=== PATIENT | male | born 1975 | race Caucasian/White ===

== ENCOUNTER 2016-07-20 22:08 | Emergency (ER) | payer BC ==
--- NOTE | 2016-07-20 23:26 | ED ---
Rosetta Styles Matthew, scribed for Norman Jernigan MD on 07/20/16 at 2326 . Lower Extremity - HPI Summary HPI Summary: A 41 y/o male presents to the ED from [facility] c/o of a "lump" on the right cano since 07/16/16. The "lump" was initially the size of a nickel and he lanced it on 07/18/16. Associated symptoms include erythema, swelling, SOB, and productive cough with green phlegm. The patient denies fever. He has been consistently taking Tylenol. - History of Current Complaint Chief Complaint: EDExtremityLower Stated Complaint: RIGHT LEG SWELLING,SHORT OF BREATH COMMING FROM Time Seen by Provider: 07/20/16 23:11 Hx Obtained From: Patient Mechanism Of Injury: Unknown Onset/Duration: Still Present Severity Initially: Mild Severity Currently: Mild Pain Intensity: 3 Pain Scale Used: 0-10 Numeric Timing: Constant Location: Is Discrete @ - right vizcaino Associated Signs And Symptoms: Positive: Swelling, Redness, Other - SOB, productive cough w/ green phlegm. Negative: Fever Aggravating Factor(s): Nothing Alleviating Factor(s): Nothing Able to Bear Weight: Yes - Allergies/Home Medications Allergies/Adverse Reactions: Allergies Allergy/AdvReac Type Severity Reaction Status Date / Time Penicillins [PCN] Allergy Severe Unknown Verified 01/14/16 09:31 Reaction Details Levofloxacin [From Levaquin] Allergy Rash Verified 01/14/16 09:31 PMH/Surg Hx/FS Hx/Imm Hx Endocrine/Hematology History: Denies: Hx Diabetes, Hx Thyroid Disease Cardiovascular History: Denies: Hx Congestive Heart Failure, Hx Hypertension, Hx Pacemaker/ICD Respiratory History: Reports: Hx Asthma Denies: Hx Chronic Obstructive Pulmonary Disease (COPD) GI History: Denies: Hx Ulcer History: Denies: Hx Renal Disease Sensory History: Reports: Hx Contacts or Glasses, Hx Hearing Problem Denies: Hx Hearing Aid Opthamlomology History: Reports: Hx Contacts or Glasses Psychiatric History: Reports: Hx Anxiety, Hx Depression, Hx Panic Disorder - VERY AXIOUS, Hx Substance Abuse Denies: Hx Suicide Attempt Infectious Disease History: No Infectious Disease History: Reports: Hx Hepatitis - Hep A & D or E Denies: Hx Human Immunodeficiency Virus (HIV), Traveled Outside the [place] in Last 30 Days - Family History Known Family History: Positive: Other - DJD - Social History Alcohol Use: None Hx Substance Use: Yes - Hx of IV drugs abuse Substance Use Type: Reports: None Smoking Status (MU): Unknown if Ever Smoked Type: Smokeless Tobacco Review of Systems Constitutional: Negative Negative: Fever Eyes: Negative ENT: Negative Cardiovascular: Negative Positive: Shortness Of Breath, Cough - w/ green phlegm Gastrointestinal: Negative Genitourinary: Negative Musculoskeletal: Negative Skin: Other - erythema of the cano, swelling of the vizcaino Neurological: Negative Psychological: Normal All Other Systems Reviewed And Are Negative: Yes Physical Exam Triage Information Reviewed: Yes Vital Signs On Initial Exam: Initial Vitals Temp Pulse Resp BP Pulse Ox 97.9 F 60 18 163/79 100 07/20/16 22:10 07/20/16 22:10 07/20/16 22:10 07/20/16 22:10 07/20/16 22:10 Vital Signs Reviewed: Yes Appearance: Positive: Well-Appearing, No Pain Distress Skin: Positive: Warm, Other - rle 2x2 cm area of erythema, warmth tender, no fluctuance Eyes: Positive: BROWN ENT: Positive: Hearing grossly normal Neck: Positive: Supple Respiratory/Lung Sounds: Positive: Clear to Auscultation, Breath Sounds Present Cardiovascular: Positive: RRR Abdomen Description: Positive: Nontender, Soft Bowel Sounds: Positive: Present Diagnostics - Vital Signs Vital Signs Temp Pulse Resp BP Pulse Ox 07/20/16 22:46 98.5 F 61 16 128/65 99 07/20/16 22:10 97.9 F 60 18 163/79 100 - Laboratory Lab Statement: Any lab studies that have been ordered have been reviewed, and results considered in the medical decision making process. - Radiology CXR Xray Interpretation: No Acute Changes Radiology Interpretation Completed By: Radiologist Lower Extremity Course/Dx - Course Assessment/Plan: A 41 y/o male presents to the ED from [facility] c/o of a "lump" on the right cano since 07/16/16. The "lump" was initially the size of a nickel and he lanced it on 07/18/16. Associated symptoms include erythema, swelling, SOB, and productive cough with green phlegm. The patient denies fever. He has been consistently taking Tylenol. CXR was negative. In the ED course, the patient was given Keflex. He will be discharged on Keflex and follow-up with his PCP. - Diagnoses Provider Diagnoses: Cellulitis Discharge - Discharge Plan Condition: Stable Disposition: HOME Prescriptions: Cephalexin CAP* [Keflex CAP*] 250 mg PO QID #30 cap Patient Education Materials: Cephalexin (By mouth), Cellulitis (ED) Referrals: Jose Boone MD [Primary Care Provider] - 3 Days Additional Instructions: Please follow-up with your primary care physician. The documentation as recorded by the Rosetta carney Matthew accurately reflects the service I personally performed and the decisions made by me, Norman Jernigan MD.
[2016-07-20] MEDS ORDERED: Cephalexin CAP* 500 MG PO ONE (23:43)
[2016-07-21 00:10] VITALS: BP 130/76
--- NOTE | 2016-07-21 07:35 | RAD ---
INDICATION: Cough. COMPARISON: Correlation is made with prior chest x-ray studies from October 31, 2015 and November 21, 2015. TECHNIQUE: Dual-energy PA and lateral views of the chest were obtained. FINDINGS: The heart is within normal limits in size. Mediastinal and hilar contours appear within normal limits. The lungs are clear. No pleural effusion is present. IMPRESSION: NO EVIDENCE FOR ACTIVE CARDIOPULMONARY DISEASE.
== END 2016-07-21 00:10 | disposition home or self-care (01) ==
LOC: ED 22:08
DX: L03.115 Cellulitis of right lower limb (principal); F41.9 Anxiety disorder, unspecified; Z88.0 Allergy status to penicillin
CPT/HCPCS: 71020; 99282

== ENCOUNTER 2017-05-13 20:35 | Emergency (ER) | payer BC ==
[2017-05-13 20:59] VITALS: BP 129/83
[2017-05-13] MEDS ORDERED: Sulfamethox/Trimethoprim DS 800/160* TAB PO ONE (21:19)
[2017-05-13] MEDS ORDERED: Cephalexin CAP* 500 MG PO ONE (21:19)
--- NOTE | 2017-05-13 21:30 | UC ---
Skin Complaint HPI - HPI Summary HPI Summary: 42 year male with history of PSA (sober for 11 years) here for right arm, abdominal, groin area and leg redness and swelling. Reports symptoms started about 10 days ago with lesion over groin. Over the course of the past few days, reports the swelling and lesions disseminated to arm, abdomen, leg and back. Denies fever, chills. No n/v/d/. Reports mild pain. - History of Current Complaint Chief Complaint: UCSkin Time Seen by Provider: 05/13/17 21:01 Stated Complaint: RASH Hx Obtained From: Patient Onset/Duration: Gradual Onset Skin Exposure Onset/Duration: Days Ago Onset Severity: Mild Current Severity: Mild Pain Intensity: 5 Location: Diffuse Aggravating Factor(s): Nothing - Allergy/Home Medications Allergies/Adverse Reactions: Allergies Allergy/AdvReac Type Severity Reaction Status Date / Time levofloxacin [From Levaquin] Allergy Severe Rash Verified 05/13/17 20:59 Penicillins Allergy Unknown Unknown Verified 05/13/17 20:59 Reaction Details Home Medications: Home Medications Methylphenidate ER TAB* [Concerta ER TAB*] 54 mg PO BID MDD 1 tab 05/13/17 [ History Confirmed 05/13/17] Review of Systems All Other Systems Reviewed And Are Negative: Yes PMH/Surg Hx/FS Hx/Imm Hx Previously Healthy: No - Surgical History Surgical History: None - Family History Known Family History: Positive: Other - DJD - Social History Alcohol Use: None Substance Use Type: None Smoking Status (MU): Never Smoked Tobacco Type: Smokeless Tobacco - Immunization History Most Recent Influenza Vaccination: 2 weeks ago Most Recent Tetanus Shot: unknown Most Recent Pneumonia Vaccination: never Physical Exam Triage Information Reviewed: Yes Vital Signs: Initial Vital Signs Temp 36.7 C 05/13/17 20:52 Pulse 98 05/13/17 20:52 Resp 18 05/13/17 20:52 BP 129/83 05/13/17 20:52 Pulse Ox 100 05/13/17 20:52 Eye Exam: Normal Respiratory Exam: Normal Cardiovascular: Positive: RRR, Pulses Normal. Negative: No Murmur Abdomen Description: Positive: Nontender Musculoskeletal Exam: Normal Skin: Positive: rashes - 15-20 disseminated erythematous lesions with few pustules often. No fluctuance warm to touch. No central clearing Course/Dx - Differential Diagnoses - Skin Complaint Differential Diagnoses: Abscess, Lymphadenitis, Other - folliculitis - Diagnoses Provider Diagnoses: Folliculitis. ?Disseminated MRSA Discharge - Discharge Plan Condition: Good Disposition: HOME Prescriptions: Cephalexin CAP* [Keflex CAP*] 500 mg PO QID #40 cap Sulfamethox/Trimethoprim DS* [Bactrim DS 800/160 TAB*] 1 tab PO BID #20 tab Patient Education Materials: MRSA (Methicillin-Resistant Staphylococcus Aureus ) (ED), Folliculitis (ED) Forms: *Work Release Referrals: Jose Boone MD [Primary Care Provider] - Additional Instructions: Follow up with your primary care doctor
== END 2017-05-13 21:45 | disposition home or self-care (01) ==
LOC: UCEAST 20:35
DX: L73.9 Follicular disorder, unspecified (principal); Z88.1 Allergy status to other antibiotic agents; Z88.0 Allergy status to penicillin
CPT/HCPCS: 99212; A9270-GY; G0463

== ENCOUNTER 2017-06-16 20:54 | Inpatient (IN) | payer BC ==
[2017-06-16] MEDS ORDERED: Ketorolac INJ* 30 MG/ML 1 ML VIAL IV PUSH ONE (21:18)
[2017-06-16] MEDS ORDERED: NS 0.9% 1000 ML* 1,000 ML IV ONE ×2 (21:19→23:09)
[2017-06-16] MEDS ORDERED: Vancomycin(*) 1,000 MG in NS 0.9% 250 ML* 250 ML IVPB ONE (21:19)
--- NOTE | 2017-06-16 21:54 | RAD ---
HISTORY: Fever COMPARISONS: July 20, 2016 VIEWS: 1: frontal portable view of the chest at 9:30 PM FINDINGS: LINES AND TUBES: None. CARDIOMEDIASTINAL SILHOUETTE: The cardiomediastinal silhouette is normal for portable technique. PLEURA: The costophrenic angles are sharp. No pleural abnormalities are noted. LUNG PARENCHYMA: The lungs are clear. ABDOMEN: The upper abdomen is clear. There is no subphrenic gas. BONES AND SOFT TISSUES: No bone or soft tissue abnormalities are noted. IMPRESSION: NO ACTIVE CARDIOPULMONARY DISEASE.
[2017-06-16 21:59] LABS: ABS Basophils 0.1 10^3/ul (0-0.2); ABS Eosinophils 0.2 10^3/ul (0-0.6); ABS Lymphocytes 2.2 10^3/ul (1.0-4.8); ABS Monocytes 0.8 10^3/ul (0-0.8); ABS Neutrophils 7.6 10^3/ul (1.5-7.7); ABS Nucleated RBC 0 10^3/ul; Eosinophil % 1.5 % (0-6); Hematocrit 40 % (42-52); Hemoglobin 13.8 g/dl (14.0-18.0); Lymphocyte % 20.4 % (25-47); Mean Corpuscular HGB Conc 34 g/dl (31-36); Mean Corpuscular Hemoglobin 29 pg (27-31); Mean Corpuscular Volume 83 fL (80-94); Mean Platelet Volume 8.1 um3 (7.4-10.4); Nucleated Red Blood Cells % 0; Platelet Count 254 10^3/ul (150-450); Red Blood Count 4.84 10^6/ul (4.0-5.4); Red Cell Distribution Width 13 % (10.5-15); White Blood Count 10.9 10^3/ul (3.5-10.8)
[2017-06-16 22:08] LABS: INR 1.06 (0.77-1.02)
[2017-06-16 22:17] LABS: Urine Appearance Cloudy; Urine Blood Negative (Negative); Urine Color Yellow; Urine Ketones Negative (Negative); Urine Protein Negative (Negative); Urine Specific Gravity 1.026 (1.010-1.030); Urine Urobilinogen Negative (Negative)
[2017-06-16 22:20] LABS: EGFR Non-African American 115.3 (>60)
--- NOTE | 2017-06-16 22:58 | ED ---
Karyn Styles Nilda, scribed for Lisa Kelly MD on 06/16/17 at 2106 . Skin Complaint - HPI Summary HPI Summary: This patient is a 42 year old M presenting to [facility] accompanied by with a chief complaint of constant painful, erythematous lesions to right thigh and right buttock with drainage for the past week. Pt states he's recently been treated for MRSA that was located on R-leg and L-arm last month (now resolved). Pt notes he went to [facility] and was treated with a 10-day course of abx which he completed 3 weeks ago. Symptoms aggravated by palpation, and alleviated by 2 Tylenols for pain last taken at 1700 today. Patient reports chills, diaphoresis , fever, and myalgia, since onset of lesions. Pt notes 4-year-old daughter was positive for MRSA via culture. Pt notes his own lesions were not cultured. Medications include Concerta and Suboxone. Pt states he's been sober from drugs 11 years. - History of Current Complaint Chief Complaint: EDRashSkinAbscess Time Seen by Provider: 06/16/17 21:02 Stated Complaint: RASH Hx Obtained From: Patient Onset/Duration: Started Weeks Ago, Still Present Skin Exposure Onset/Duration: Weeks Ago Timing: Constant Pain Intensity: 0 Pain Scale Used: 0-10 Numeric Skin Location: Other: - right thigh and right buttock Character: Pain, Redness Aggravating Symptom(s): Touch Alleviating Symptom(s): OTC Meds - tylenol Associated Signs & Symptoms: Diaphoresis, Fever, Chills, Rash, Tenderness Related History: Other: - MRSA, recent contact with family with MRSA - Additional Pertinent History Primary Care Physician: [id number] - Allergy/Home Medications Allergies/Adverse Reactions: Allergies Allergy/AdvReac Type Severity Reaction Status Date / Time levofloxacin [From Levaquin] Allergy Severe Rash Verified 06/16/17 21:21 Penicillins Allergy Unknown Unknown Verified 06/16/17 21:21 Reaction Details PMH/Surg Hx/FS Hx/Imm Hx Endocrine/Hematology History: Denies: Hx Diabetes, Hx Thyroid Disease Cardiovascular History: Denies: Hx Congestive Heart Failure, Hx Hypertension, Hx Pacemaker/ICD Respiratory History: Reports: Hx Asthma Denies: Hx Chronic Obstructive Pulmonary Disease (COPD) GI History: Denies: Hx Ulcer History: Denies: Hx Renal Disease Sensory History: Reports: Hx Contacts or Glasses, Hx Hearing Problem Denies: Hx Hearing Aid Opthamlomology History: Reports: Hx Contacts or Glasses Psychiatric History: Reports: Hx Anxiety, Hx Depression, Hx Panic Disorder - VERY AXIOUS, Hx Substance Abuse Denies: Hx Suicide Attempt Infectious Disease History: Yes Infectious Disease History: Reports: Hx Hepatitis - Hep A & D or E Denies: Hx Human Immunodeficiency Virus (HIV), Traveled Outside the [place] in Last 30 Days - Family History Known Family History: Positive: Other - DJD, MRSA (child) - Social History Lives: With Family Alcohol Use: None Hx Substance Use: Yes - Hx of IV drugs abuse Substance Use Type: Reports: None Smoking Status (MU): Never Smoked Tobacco Type: Smokeless Tobacco Review of Systems Positive: Fever, Chills, Skin Diaphoresis Positive: Myalgia Positive: Other - painful, erythematous lesions to right thigh and right buttock with drainage All Other Systems Reviewed And Are Negative: Yes Physical Exam - Summary Physical Exam Summary: VITAL SIGNS: Reviewed. GENERAL: Patient is a well-developed and nourished male who is lying comfortable in the stretcher. Patient is not in any acute respiratory distress. HEAD AND FACE: No signs of trauma. No ecchymosis, hematomas or skull depressions. No sinus tenderness. EYES: PERRLA, EOMI x 2, No injected conjunctiva, no nystagmus. EARS: Hearing grossly intact. Ear canals and tympanic membranes are within normal limits. MOUTH: Oropharynx within normal limits. NECK: Supple, trachea is midline, no adenopathy, no JVD, no carotid bruit, no c- spine tenderness, neck with full ROM. CHEST: Symmetric, no tenderness at palpation LUNGS: Clear to auscultation bilaterally. No wheezing or crackles. CVS: Regular rate and rhythm, S1 and S2 present, no murmurs or gallops appreciated. ABDOMEN: Soft, non-tender. No signs of distention. No rebound no guarding, and no masses palpated. Bowel sounds are normal. EXTREMITIES: FROM in all major joints, no edema, no cyanosis or clubbing. NEURO: Alert and oriented x 3. No acute neurological deficits. Speech is normal and follows commands. SKIN: Dry and warm, 2 lesions over the right thigh (one on lateral aspect and one on medial aspect) that are 1-2in in diameter, and are red, swollen, tender with no discharge. Triage Information Reviewed: Yes Vital Signs On Initial Exam: Initial Vitals Temp Pulse Resp BP Pulse Ox 97.9 F 88 16 129/75 97 06/16/17 20:55 06/16/17 20:55 06/16/17 20:55 06/16/17 20:55 06/16/17 20:55 Vital Signs Reviewed: Yes Diagnostics - Vital Signs Vital Signs Temp Pulse Resp BP Pulse Ox 06/16/17 20:55 97.9 F 88 16 129/75 97 - Laboratory Result Diagrams: 06/16/17 21:50 Lab Statement: Any lab studies that have been ordered have been reviewed, and results considered in the medical decision making process. - Radiology CXR Radiology Interpretation Completed By: Radiologist - CXR, per radiologist, reveals no active cardiopulmonary disease. Dr. Kelly has reviewed this radiology report. Course/Dx - Course Course Of Treatment: The lesion on the lateral thigh has prominent head which needed aspiration. There was no aspirate in syringe but there was still a scant amount of bloody pus-filled discharge that oozed from wound and was sent for culture. Assessment/Plan: This pt is a 42 y/o with Hx MRSA who came with fever and painful skin lesions. Exam consistent with cellulitis. Pt will be admitted for IV vancomycin. - Diagnoses Provider Diagnoses: Cellulitis - Physician Notifications Discussed Care Of Patient With: Sparkel Fuentes - Hospitalist Time Discussed With Above Provider: 22:09 Instructed by Provider To: Admit As Inpatient Discharge - Sign-Out/Discharge Documenting (check all that apply): Discharge - admit - Discharge Plan Condition: Stable Disposition: ADMITTED TO [facility] Referrals: Jose Boone MD [Primary Care Provider] - The documentation as recorded by the Karyn carney Nilda accurately reflects the service I personally performed and the decisions made by me, Lisa Kelly MD.
[2017-06-16] MEDS ORDERED: Ondansetron INJ* 2 MG/ML VIAL IV PRN (23:07)
[2017-06-16] MEDS ORDERED: Al Hydrox/Mg Hydrox/Simet LIQ* 30 ML UDC PO PRN (23:07)
[2017-06-16] MEDS ORDERED: Vancomycin per Pharmacy* NOTE FOLLOW UP PRN (23:37)
[2017-06-16] MEDS ORDERED: Vancomycin(*) 0 MG in NS 0.9% 250 ML* 250 ML IVPB SCH (23:45)
--- NOTE | 2017-06-17 00:42 | HP ---
CC: Jose Boone MD * HISTORY AND PHYSICAL: DATE OF ADMISSION: 06/16/17 TIME OF EVALUATION: 2300. PRIMARY CARE PHYSICIAN: Jose Boone MD CHIEF COMPLAINT: Concern for an abscess. HISTORY OF PRESENT ILLNESS: This is a 42-year-old male with a past medical history of cellulitis and boils, concerned for MRSA, who presented to the emergency room with recurrent infection. The patient states about a month ago, he had boils on his right arm, stomach and his left leg. His daughter also was diagnosed with MRSA. They did not culture his, but he was started on Bactrim and Keflex at [facility] for 10 days. He states they all seemed to resolve and there is some redness at some of the sites; however, for the past week he has had new onset of abscess, boils on his right lower buttock and right inner thigh for the past week. He has had fevers and chills, decrease in p.o. He has been nauseated. He did use his daughter's antibiotic ointment with no relief. No chest pain, no shortness of breath. No urinary symptoms. No other rash. In the emergency room, the patient had labs. They were able to express some purulent fluid from one of the lesions and sent it for culture. He was given vancomycin, a liter of fluid, and Toradol and was referred to the hospitalist service for further evaluation. He was having some hypotension. PAST MEDICAL HISTORY: 1. Remote history of IV drug use, he last used 11 years ago, is on Suboxone. 2. History of boils in the past. 3. Anxiety. 4. ADD. 5. History of opiate dependence. MEDICATIONS: 1. Concerta 54 mg p.o. b.i.d. 2. Suboxone 16 mg in the morning. ALLERGIES: LEVOFLOXACIN and PENICILLIN. FAMILY HISTORY: As mentioned, his daughter has history of MRSA boils. SOCIAL HISTORY: The patient lives at home with his and his children. His , Eugenia, is his healthcare proxy. No smoking, alcohol, or illicit drugs. He works as an addiction counselor. Code status is full code. As mentioned, he last quit using IV drugs in 2006. REVIEW OF SYSTEMS: A 14-point review of systems as mentioned in the HPI, otherwise negative. PHYSICAL EXAMINATION GENERAL: No acute distress. Resting comfortably with his at the bedside. VITAL SIGNS: Temp 97.9, pulse rate 81, respiratory rate 16, oxygen saturation 96 % on room air, blood pressure 126/66. HEENT: Head normocephalic. Pupils equal and reactive. Conjunctivae injected. Oropharynx: Mucous membranes dry. NECK: Supple. No lymphadenopathy. RESPIRATORY: Clear to auscultation. No wheezes, rhonchi, or rales. CARDIAC: Regular rate and rhythm. Soft systolic murmur. ABDOMEN: Soft, nontender, nondistended. EXTREMITIES: No clubbing, cyanosis, or edema. +2 DPs. NEUROLOGIC: Alert and oriented x3. No focal neurologic deficits. DERM: The patient with right upper extremity circular healed boils on his right upper extremity, scattered. He has a 3 to 5-cm circular boil with surrounding erythema in his right inner thigh with no fluctuance or induration and another lesion similar in size in his posterior right buttock with some induration. DIAGNOSTIC STUDIES/LAB DATA: White count 10.9, hemoglobin 13.8, hematocrit 40 , platelets 254,000. INR is 1.06. Sodium 137, potassium 3.6, chloride 103, bicarb 27, BUN 8, creatinine 0.75, glucose 129. CRP is 21. UA is unremarkable. Chest x-ray: No active cardiopulmonary disease. ASSESSMENT: This is a 42-year-old male with a past medical history of presumed MRSA boils with a remote history of IV drug use, presents to the emergency room with recurrence of boils, found to have relative hypotension in the emergency room. 1. Cellulitis/boil. Assessment: I do not think there is an abscess or an area that should be I and D'd. It is possible that the buttock one may need to be I and D'd, but I would do a trial of IV antibiotics, reassess in the morning. We will give another liter of fluid. We will continue him on IV fluids maintenance. We will continue him on Toradol and avoid opiates and follow up on his wound culture. CHRONIC MEDICAL PROBLEMS: 1. History of opiate dependence. He could resume his Suboxone. 2. Attention deficit disorder. Continue his Concerta. 3. FEN. Place him on a regular diet and IV fluids. 4. DVT prophylaxis. The patient scores low risk. We will encourage ambulation. 5. Code status: Full code. PATIENT TIME: Greater than 50 minutes spent doing the history and physical, more than half time spent in direct patient contact. [id number]/[facility] #: [id number] VICENTE
[2017-06-17] MEDS: NS 0.9% 1000 ML* 1,000 ML IV SCH ×3 (01:38→21:43)
[2017-06-17] MEDS: Acetaminophen TAB* 325 MG PO PRN ×3 (02:49→21:45)
[2017-06-17] MEDS: Vancomycin(*) 1,500 MG in NS 0.9% 250 ML* 250 ML IVPB SCH ×3 (04:38→21:43)
[2017-06-17 06:56] LABS: ABS Basophils 0.1 10^3/ul (0-0.2); ABS Eosinophils 0.1 10^3/ul (0-0.6); ABS Lymphocytes 2.8 10^3/ul (1.0-4.8); ABS Monocytes 0.7 10^3/ul (0-0.8); ABS Neutrophils 4.2 10^3/ul (1.5-7.7); ABS Nucleated RBC 0 10^3/ul; Eosinophil % 1.6 % (0-6); Hematocrit 37 % (42-52); Hemoglobin 12.7 g/dl (14.0-18.0); Lymphocyte % 35.8 % (25-47); Mean Corpuscular HGB Conc 34 g/dl (31-36); Mean Corpuscular Hemoglobin 29 pg (27-31); Mean Corpuscular Volume 84 fL (80-94); Mean Platelet Volume 8.3 um3 (7.4-10.4); Nucleated Red Blood Cells % 0.1; Platelet Count 217 10^3/ul (150-450); Red Blood Count 4.42 10^6/ul (4.0-5.4); Red Cell Distribution Width 13 % (10.5-15); White Blood Count 7.9 10^3/ul (3.5-10.8)
[2017-06-17 07:12] LABS: EGFR Non-African American 98.5 (>60)
[2017-06-17] MEDS: Buprenorphine/Naloxone 8-2 MG SL TAB* 1 TAB SL SCH (08:10)
[2017-06-17] MEDS: Methylphenidate ER TAB* 18 MG PO SCH ×2 (08:11→21:45)
--- NOTE | 2017-06-17 11:19 | PN ---
Subjective Date of Service: 06/17/17 Interval History: Patient seen and examined. States he is having some pain in the wounds, margins have not gone past markings. No fever or chills today. States he was nauseous overnight with some SOB, no vomiting, no chest pain. Objective Active Medications: Acetaminophen (Tylenol Tab*) 650 mg PO Q4H PRN PRN Reason: FEVER/PAIN Last Admin: 06/17/17 08:10 Dose: 650 mg Al Hydrox/Mg Hydrox/Simethicone (Maalox Plus*) 30 ml PO Q6H PRN PRN Reason: INDIGESTION Buprenorphine/Naloxone (Suboxone 8-2 Mg Sl Tab*) 2 tab.sl SL QAM COUNTS INCLUDE 234 BEDS AT THE [facility] Last Admin: 06/17/17 08:10 Dose: 2 tab.sl Sodium Chloride (Ns 0.9% 1000 Ml*) 1,000 mls @ 125 mls/hr IV PER RATE COUNTS INCLUDE 234 BEDS AT THE [facility] Last Admin: 06/17/17 01:38 Dose: 125 mls/hr Vancomycin HCl 1,500 mg/ (Sodium Chloride) 250 mls @ 166.667 mls/hr IVPB Q8H COUNTS INCLUDE 234 BEDS AT THE [facility] Last Admin: 06/17/17 04:38 Dose: 166.667 mls/hr Ketorolac Tromethamine (Toradol Inj*) 15 mg IV PUSH Q6H PRN PRN Reason: PAIN Methylphenidate HCl (Concerta Er Tab*) 54 mg PO BID COUNTS INCLUDE 234 BEDS AT THE [facility] Last Admin: 06/17/17 08:11 Dose: 54 mg Ondansetron HCl (Zofran Inj*) 4 mg IV Q4H PRN PRN Reason: NAUSEA/VOMITING Pharmacy Consult (Vancomycin Per Pharmacy*) 1 note FOLLOW UP . PRN PRN Reason: PER PROTOCOL Pharmacy Profile Note (Vancomycin Trough Check) 1 note FOLLOW UP .ENTER TIME ONE Stop: 06/17/17 20:31 Vital Signs - 8 hr 06/17/17 06/17/17 06/17/17 07:38 08:00 08:10 Temperature 97.7 F Pulse Rate 72 Respiratory 16 14 14 Rate Blood Pressure 123/64 (mmHg) O2 Sat by Pulse 98 Oximetry 06/17/17 11:03 Temperature Pulse Rate Respiratory 14 Rate Blood Pressure (mmHg) O2 Sat by Pulse Oximetry Oxygen Devices in Use Now: None Appearance: Alert, NAD Eyes: No Scleral Icterus, PERRLA Ears/Nose/Mouth/Throat: Clear Oropharnyx, Mucous Membranes Moist Neck: Trachea Midline Respiratory: Symmetrical Chest Expansion and Respiratory Effort, Clear to Auscultation Cardiovascular: NL Sounds; No Murmurs; No JVD, RRR, No Edema Neurological: Alert and Oriented x 3, NL Gait Nutrition: Taking PO's Result Diagrams: 06/17/17 06:40 06/17/17 06:40 Diagnostic Imaging: Patient Name: MINE MG Medical Record#: [id number] Ordering Physician: Lisa Kelly MD Acct.#: [id number] : 1975 Age: 42 Sex: M Location: EMERGENCY DEPARTMENT Exam Date: 06/16/172116 ADM Status: PRE ER Order Information: CHEST AP PORTABLE Accession Number: [id number] CPT: 49457 HISTORY: Fever COMPARISONS: July 20, 2016 VIEWS: 1: frontal portable view of the chest at 9:30 PM FINDINGS: LINES AND TUBES: None. CARDIOMEDIASTINAL SILHOUETTE: The cardiomediastinal silhouette is normal for portable technique. PLEURA: The costophrenic angles are sharp. No pleural abnormalities are noted. LUNG PARENCHYMA: The lungs are clear. ABDOMEN: The upper abdomen is clear. There is no subphrenic gas. BONES AND SOFT TISSUES: No bone or soft tissue abnormalities are noted. IMPRESSION: NO ACTIVE CARDIOPULMONARY DISEASE. 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 - Patient Problems (1) Infection of skin due to methicillin resistant Staphylococcus aureus (MRSA) Code(s): A49.02 - METHICILLIN RESIS STAPH INFECTION, UNSP SITE SNOMED Code(s) : 111947930 Comment: - Continue vancomycin, follow troughs - ID consult with Dr. Coker - Monitor wounds, not currently drainable, may consider consult with surgery for I&D if no improvement (2) ADHD (attention deficit hyperactivity disorder) Comment: - Continue concerta, at baseline (3) Substance abuse in remission Code(s): F19.10 - OTHER PSYCHOACTIVE SUBSTANCE ABUSE, UNCOMPLICATED SNOMED Code(s): 683644845 Comment: - Continue Suboxone at current dose (4) DVT prophylaxis Code(s): ETI2252 - SNOMED Code(s): 250369515 Comment: - SQ heparin (5) Full code status Code(s): Z78.9 - OTHER SPECIFIED HEALTH STATUS SNOMED Code(s): 754923273 Status and Disposition: Remain inpatient for IV antibiotics.
[2017-06-17] MEDS ORDERED: Vancomycin Trough Check NOTE FOLLOW UP ONE (20:30)
[2017-06-18] MEDS: Vancomycin(*) 1,500 MG in NS 0.9% 250 ML* 250 ML IVPB SCH ×3 (05:17→21:35)
[2017-06-18] MEDS: Ketorolac INJ* 15 MG/ML 1 ML VIAL IV PUSH PRN ×3 (05:23→21:39)
[2017-06-18] MEDS: Methylphenidate ER TAB* 18 MG PO SCH ×2 (08:41→20:36)
[2017-06-18] MEDS: Buprenorphine/Naloxone 8-2 MG SL TAB* 1 TAB SL SCH (08:42)
[2017-06-18] MEDS: NS 0.9% 1000 ML* 1,000 ML IV SCH (08:47)
--- NOTE | 2017-06-18 10:54 | PN ---
Subjective Date of Service: 06/18/17 Interval History: Pt is feeling ok. He still has some discomfort in the R lower buttock boil. He states he also feels fatigued and achy all over. No diarrhea. Objective Active Medications: Acetaminophen (Tylenol Tab*) 650 mg PO Q4H PRN PRN Reason: FEVER/PAIN Last Admin: 06/17/17 21:45 Dose: 650 mg Al Hydrox/Mg Hydrox/Simethicone (Maalox Plus*) 30 ml PO Q6H PRN PRN Reason: INDIGESTION Buprenorphine/Naloxone (Suboxone 8-2 Mg Sl Tab*) 2 tab.sl SL QAM [facility] Last Admin: 06/18/17 08:42 Dose: 2 tab.sl Sodium Chloride (Ns 0.9% 1000 Ml*) 1,000 mls @ 125 mls/hr IV PER RATE [facility] Last Admin: 06/18/17 08:47 Dose: 125 mls/hr Vancomycin HCl 1,500 mg/ (Sodium Chloride) 250 mls @ 166.667 mls/hr IVPB Q8H [facility] Last Admin: 06/18/17 05:17 Dose: 166.667 mls/hr Ketorolac Tromethamine (Toradol Inj*) 15 mg IV PUSH Q6H PRN PRN Reason: PAIN Last Admin: 06/18/17 05:23 Dose: 15 mg Methylphenidate HCl (Concerta Er Tab*) 54 mg PO BID [facility] Last Admin: 06/18/17 08:41 Dose: 54 mg Ondansetron HCl (Zofran Inj*) 4 mg IV Q4H PRN PRN Reason: NAUSEA/VOMITING Pharmacy Consult (Vancomycin Per Pharmacy*) 1 note FOLLOW UP . PRN PRN Reason: PER PROTOCOL Vital Signs - 8 hr 06/18/17 06/18/17 06/18/17 07:37 08:42 08:43 Temperature 98.5 F Pulse Rate 106 Respiratory 16 148 16 Rate Blood Pressure 149/80 (mmHg) O2 Sat by Pulse 96 Oximetry Oxygen Devices in Use Now: None Appearance: Middle aged male sitting on the edge of the bed, NAD Eyes: No Scleral Icterus Ears/Nose/Mouth/Throat: Mucous Membranes Moist Respiratory: Symmetrical Chest Expansion and Respiratory Effort, Clear to Auscultation Cardiovascular: NL Sounds; No Murmurs; No JVD, RRR, No Edema Abdominal: NL Sounds; No Tenderness; No Distention Extremities: No Clubbing, Cyanosis Skin: - - small area of erythema with central ~3mm area of ulceration in the center noted in the inner upper R groin, small amount of drainage noted on the dressing. Quarter sized area of induration wiht erythema noted on the lower R buttock. Small amount of drainage noted on dressing. Neurological: Alert and Oriented x 3 Result Diagrams: 06/17/17 06:40 06/17/17 06:40 Diagnostic Imaging: Patient Name: MINE CERNA Medical Record#: [id number] Ordering Physician: Lisa Kelly MD Acct.#: [id number] : 1975 Age: 42 Sex: M Location: EMERGENCY DEPARTMENT Exam Date: 06/16/172116 ADM Status: PRE ER Order Information: CHEST AP PORTABLE Accession Number: [id number] CPT: 45527 HISTORY: Fever COMPARISONS: July 20, 2016 VIEWS: 1: frontal portable view of the chest at 9:30 PM FINDINGS: LINES AND TUBES: None. CARDIOMEDIASTINAL SILHOUETTE: The cardiomediastinal silhouette is normal for portable technique. PLEURA: The costophrenic angles are sharp. No pleural abnormalities are noted. LUNG PARENCHYMA: The lungs are clear. ABDOMEN: The upper abdomen is clear. There is no subphrenic gas. BONES AND SOFT TISSUES: No bone or soft tissue abnormalities are noted. IMPRESSION: NO ACTIVE CARDIOPULMONARY DISEASE. 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 - Patient Problems (1) Infection of skin due to methicillin resistant Staphylococcus aureus (MRSA) Current Visit: Yes Status: Acute Code(s): A49.02 - METHICILLIN RESIS STAPH INFECTION, UNSP SITE SNOMED Code(s): 264818129 Comment: Continue vancomycin for now. ID consult pending with Dr. Coker. ? whole body washes. No imaging needed at this time but will follow the boil on the buttock as it is still indurated. (2) ADHD (attention deficit hyperactivity disorder) Current Visit: Yes Status: Acute Comment: Continue concerta. (3) Substance abuse in remission Current Visit: Yes Status: Acute Code(s): F19.10 - OTHER PSYCHOACTIVE SUBSTANCE ABUSE, UNCOMPLICATED SNOMED Code(s): 963166027 Comment: Continue Suboxone at current dose (4) DVT prophylaxis Current Visit: Yes Status: Acute Code(s): MQS3548 - SNOMED Code(s): 096763026 Comment: SQ heparin (5) Full code status Current Visit: Yes Status: Acute Code(s): Z78.9 - OTHER SPECIFIED HEALTH STATUS SNOMED Code(s): 786647825 Status and Disposition: Remain inpatient for IV antibiotics.
[2017-06-18] MEDS: Acetaminophen TAB* 325 MG PO PRN (20:36)
--- NOTE | 2017-06-18 22:19 | CONS ---
CONSULTATION REPORT: DATE OF CONSULT: 06/18/17 REQUESTING PHYSICIAN: Dr. Duke. CONSULTING SERVICE: Infectious Disease. REASON FOR CONSULTATION: Recurrent MRSA abscess. IMPRESSION: 1. Cutaneous and subcutaneous methicillin-resistant Staphylococcus aureus abscesses, two on the right leg, one posterior, one anterior; not fluctuant, does not seem drainable at this time. 2. Allergies to LEVAQUIN and PENICILLIN. 3. Opioid dependence, on maintenance. RECOMMENDATIONS: Doxycycline 100 mg by mouth twice a day for 14 days. Follow up with me and General Surgery as an outpatient to see if one of his abscesses will become drainable. I recommend to start Hibiclens washes each day in a shower as well as mupirocin in the nostrils twice a day, do this for 7 days. Follow up with me. If the abscesses do not persistent or return, that is great ; if they do, he can do this one week a month each month for the next 4 to 6 months. HISTORY OF PRESENT ILLNESS: This is a 42-year-old man admitted with abscesses on his right leg. He has been dealing with this for about the last 6 to 8 weeks as was his daughter, though his daughter seemed to have broken a cycle. Also his is in their home, but does not develop these abscesses. He had Bactrim as an outpatient for a number of small abscesses, they resolved while taking it and then he developed right buttock and right thigh abscess that led him to come to the hospital. He has had no fever, chills, or rash. Swab was taken of the right buttock abscess, grew MRSA. The blood cultures were negative. His pain and swelling in these abscesses improving. There is minimal drainage. The antibiotic he was obtaining was vancomycin. PAST MEDICAL HISTORY: 1. History of IV drug use, now on Suboxone maintenance. 2. MRSA. 3. Anxiety. 4. Attention deficit disorder. MEDICATIONS: 1. Atenolol 2. Buprenorphine. 3. Naloxone. 4. Ketorolac. 5. Methylphenidate. 6. Vancomycin 1500 mg every 8 hours. ALLERGIES: LEVAQUIN and PENICILLIN. FAMILY HISTORY: MRSA in the daughter. No other recurrent infections. SOCIAL HISTORY: He lives with his and daughter, no sick contacts. REVIEW OF SYSTEMS: A 14-point review of systems, all negative. PHYSICAL EXAM: Vital Signs: Temperature 37, heart rate 90, respiratory rate 16 , blood pressure 148/80, oxygen saturation 97% on room air. In general, he is awake, not in distress. Neurologic: He is oriented x3, follows all commands. HEENT: There is no conjunctival hemorrhage. Oropharynx without lesions. Neck: Supple without mass. Lymph Nodes: There is no inguinal, axillary, or epitrochlear lymphadenopathy. Heart: Regular rate and rhythm without murmurs, rubs, or gallops. Lungs: Clear to auscultation bilaterally. Abdomen: Soft, nontender, nondistended. There are bowel sounds present. Skin: There is no rash or splinter hemorrhoids. Musculoskeletal: There is no spine tenderness to palpation or joint synovitis. There is about a 3 cm right buttock area of mild erythema and induration without fluctuance as well. There is another area in the right medial thigh with 2-3 cm induration without fluctuance or crepitus. LABORATORY DATA: White blood cell count 7, hemoglobin 12, platelets 217. Creatinine is 0.8. CRP 20. Please see impressions and recommendations as outlined above. Thank you for asking me to see Mr. Cerna. [id number]/[facility] #: [id number] [facility] CENTERJuliocesar
[2017-06-19] MEDS: Mupirocin 2% OINT* TUBE TOPICAL SCH ×3 (01:14→20:48)
[2017-06-19] MEDS: NS 0.9% 1000 ML* 1,000 ML IV SCH (01:16)
[2017-06-19] MEDS: Vancomycin(*) 1,500 MG in NS 0.9% 250 ML* 250 ML IVPB SCH ×4 (05:05→22:39)
[2017-06-19] MEDS: Methylphenidate ER TAB* 18 MG PO SCH ×3 (08:43→21:39)
[2017-06-19] MEDS: Buprenorphine/Naloxone 8-2 MG SL TAB* 1 TAB SL SCH (08:43)
[2017-06-19] MEDS: Ketorolac INJ* 15 MG/ML 1 ML VIAL IV PUSH PRN ×2 (08:44→22:29)
--- NOTE | 2017-06-19 13:26 | PN ---
Subjective Date of Service: 06/19/17 Interval History: Pt is feeling poorly this AM. He states he feels hazy. He does not remember much of the morning. He continues to c/o pain in his R buttock/groin. Objective Active Medications: Acetaminophen (Tylenol Tab*) 650 mg PO Q4H PRN PRN Reason: FEVER/PAIN Last Admin: 06/18/17 20:36 Dose: 650 mg Al Hydrox/Mg Hydrox/Simethicone (Maalox Plus*) 30 ml PO Q6H PRN PRN Reason: INDIGESTION Buprenorphine/Naloxone (Suboxone 8-2 Mg Sl Tab*) 2 tab.sl SL QAM [facility] Last Admin: 06/19/17 08:43 Dose: 2 tab.sl Sodium Chloride (Ns 0.9% 1000 Ml*) 1,000 mls @ 125 mls/hr IV PER RATE [facility] Last Admin: 06/19/17 01:16 Dose: 125 mls/hr Vancomycin HCl 1,500 mg/ (Sodium Chloride) 250 mls @ 166.667 mls/hr IVPB Q8H [facility] Last Admin: 06/19/17 05:05 Dose: 166.667 mls/hr Ketorolac Tromethamine (Toradol Inj*) 15 mg IV PUSH Q6H PRN PRN Reason: PAIN Last Admin: 06/19/17 08:44 Dose: 15 mg Methylphenidate HCl (Concerta Er Tab*) 54 mg PO BID [facility] Last Admin: 06/19/17 08:43 Dose: 54 mg Mupirocin (Bactroban 2 % Oint*) 1 applic TOPICAL BID [facility] Last Admin: 06/19/17 08:49 Dose: 1 applic Ondansetron HCl (Zofran Inj*) 4 mg IV Q4H PRN PRN Reason: NAUSEA/VOMITING Pharmacy Consult (Vancomycin Per Pharmacy*) 1 note FOLLOW UP . PRN PRN Reason: PER PROTOCOL Vital Signs - 8 hr 06/19/17 06/19/17 08:43 12:19 Respiratory 18 16 Rate Oxygen Devices in Use Now: None Appearance: Middle aged male sitting up in bed, appears sleepy, NAD Eyes: No Scleral Icterus Ears/Nose/Mouth/Throat: Mucous Membranes Moist Respiratory: Symmetrical Chest Expansion and Respiratory Effort, Clear to Auscultation Cardiovascular: NL Sounds; No Murmurs; No JVD, RRR, No Edema Abdominal: NL Sounds; No Tenderness; No Distention Extremities: No Clubbing, Cyanosis Skin: - - slightly less erythema to the 2 small areas of cellulitis/abscess, area on buttock still minimally indurated Neurological: - - oriented x3, sleepy appearing Result Diagrams: 06/17/17 06:40 06/17/17 06:40 Diagnostic Imaging: Patient Name: MINE CERNA Medical Record#: [id number] Ordering Physician: Lisa Kelly MD Acct.#: [id number] : 1975 Age: 42 Sex: M Location: EMERGENCY DEPARTMENT Exam Date: 06/16/172116 ADM Status: PRE ER Order Information: CHEST AP PORTABLE Accession Number: [id number] CPT: 82725 HISTORY: Fever COMPARISONS: July 20, 2016 VIEWS: 1: frontal portable view of the chest at 9:30 PM FINDINGS: LINES AND TUBES: None. CARDIOMEDIASTINAL SILHOUETTE: The cardiomediastinal silhouette is normal for portable technique. PLEURA: The costophrenic angles are sharp. No pleural abnormalities are noted. LUNG PARENCHYMA: The lungs are clear. ABDOMEN: The upper abdomen is clear. There is no subphrenic gas. BONES AND SOFT TISSUES: No bone or soft tissue abnormalities are noted. IMPRESSION: NO ACTIVE CARDIOPULMONARY DISEASE. 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 - Patient Problems (1) Infection of skin due to methicillin resistant Staphylococcus aureus (MRSA) Current Visit: Yes Status: Acute Code(s): A49.02 - METHICILLIN RESIS STAPH INFECTION, UNSP SITE SNOMED Code(s): 885359915 Comment: Continue vancomycin for now but can go home on doxycycline 100mg po BID x 14 days. He will also continue with hibiclens washes and mupirocin in the nostrils per Dr Garcia recommendations. Still no need for I&D-both lesions are draining slightly. (2) ADHD (attention deficit hyperactivity disorder) Current Visit: Yes Status: Acute Comment: Continue concerta. (3) Substance abuse in remission Current Visit: Yes Status: Acute Code(s): F19.10 - OTHER PSYCHOACTIVE SUBSTANCE ABUSE, UNCOMPLICATED SNOMED Code(s): 774449955 Comment: Continue Suboxone at current dose (4) DVT prophylaxis Current Visit: Yes Status: Acute Code(s): UWP9734 - SNOMED Code(s): 174473159 Comment: SQ heparin (5) Full code status Current Visit: Yes Status: Acute Code(s): Z78.9 - OTHER SPECIFIED HEALTH STATUS SNOMED Code(s): 742253386 Status and Disposition: Remain inpatient for IV antibiotics.
[2017-06-19 13:59] LABS: Hematocrit 38 % (42-52); Hemoglobin 12.9 g/dl (14.0-18.0); Mean Corpuscular HGB Conc 34 g/dl (31-36); Mean Corpuscular Hemoglobin 29 pg (27-31); Mean Corpuscular Volume 84 fL (80-94); Mean Platelet Volume 7.9 um3 (7.4-10.4); Platelet Count 257 10^3/ul (150-450); Red Cell Distribution Width 13 % (10.5-15); White Blood Count 7.8 10^3/ul (3.5-10.8)
[2017-06-19 14:17] LABS: EGFR Non-African American 113.6 (>60)
[2017-06-19] MEDS ORDERED: LORazepam TAB(*) 1 MG PO PRN (15:09)
[2017-06-19] MEDS: Acetaminophen TAB* 325 MG PO PRN (20:48)
[2017-06-19] MEDS ORDERED: DOXYcycline CAP(*) 100 MG PO SCH (21:00)
[2017-06-19] MEDS ORDERED: SUMAtriptan TAB* 50 MG PO PRN (22:10)
[2017-06-19] MEDS ORDERED: Vancomycin per Pharmacy* NOTE FOLLOW UP PRN (22:28)
[2017-06-19] MEDS ORDERED: Vancomycin(*) 1,000 MG in NS 0.9% 250 ML* 250 ML IVPB SCH (23:00)
[2017-06-20] MEDS: Vancomycin(*) 1,500 MG in NS 0.9% 250 ML* 250 ML IVPB SCH ×2 (06:15→06:17)
[2017-06-20 07:04] LABS: EGFR Non-African American 111.9 (>60)
[2017-06-20] MEDS: Methylphenidate ER TAB* 18 MG PO SCH (08:04)
[2017-06-20] MEDS: Buprenorphine/Naloxone 8-2 MG SL TAB* 1 TAB SL SCH (08:04)
[2017-06-20] MEDS: Mupirocin 2% OINT* TUBE TOPICAL SCH (08:06)
--- NOTE | 2017-06-20 09:11 | PN ---
Subjective Date of Service: 06/20/17 Interval History: Pt is feeling about the same as yesterday. He does think his anxiety is improved after having ativan added back to his regimen. He still feels lethargic. I explained that his ammonia level is very mildly elevated but is of unclear significance. Objective Active Medications: Acetaminophen (Tylenol Tab*) 650 mg PO Q4H PRN PRN Reason: FEVER/PAIN Last Admin: 06/18/17 20:36 Dose: 650 mg Al Hydrox/Mg Hydrox/Simethicone (Maalox Plus*) 30 ml PO Q6H PRN PRN Reason: INDIGESTION Buprenorphine/Naloxone (Suboxone 8-2 Mg Sl Tab*) 2 tab.sl SL QAM [facility] Last Admin: 06/20/17 08:04 Dose: 2 tab.sl Sodium Chloride (Ns 0.9% 1000 Ml*) 1,000 mls @ 125 mls/hr IV PER RATE [facility] Last Admin: 06/19/17 01:16 Dose: 125 mls/hr Vancomycin HCl 1,500 mg/ (Sodium Chloride) 250 mls @ 166.667 mls/hr IVPB Q8H [facility] Last Admin: 06/20/17 06:17 Dose: 166.667 mls/hr Ketorolac Tromethamine (Toradol Inj*) 15 mg IV PUSH Q6H PRN PRN Reason: PAIN Last Admin: 06/19/17 22:29 Dose: 15 mg Lorazepam (Ativan Tab(*)) 1 mg PO Q6H PRN PRN Reason: ANXIETY Last Admin: 06/19/17 18:03 Dose: 1 mg Methylphenidate HCl (Concerta Er Tab*) 54 mg PO BID [facility] Last Admin: 06/20/17 08:04 Dose: 54 mg Mupirocin (Bactroban 2 % Oint*) 1 applic TOPICAL BID [facility] Last Admin: 06/20/17 08:06 Dose: 1 applic Ondansetron HCl (Zofran Inj*) 4 mg IV Q4H PRN PRN Reason: NAUSEA/VOMITING Pharmacy Consult (Vancomycin Per Pharmacy*) 1 note FOLLOW UP . PRN PRN Reason: PER PROTOCOL Pharmacy Profile Note (Vancomycin Trough Check) 1 note FOLLOW UP .ENTER TIME ONE Stop: 06/21/17 06:01 Sumatriptan Succinate (Imitrex Tab*) 50 mg PO Q2H PRN PRN Reason: MIGRAINE HEADACHE Last Admin: 06/19/17 22:40 Dose: 50 mg Vital Signs - 8 hr 06/20/17 06/20/17 03:26 08:04 Temperature 98.3 F Pulse Rate 75 Respiratory 16 14 Rate Blood Pressure 139/80 (mmHg) O2 Sat by Pulse 98 Oximetry Oxygen Devices in Use Now: None Appearance: Middle aged male lying in bed, awakens to voice, NAD Eyes: No Scleral Icterus Ears/Nose/Mouth/Throat: Mucous Membranes Moist Respiratory: Symmetrical Chest Expansion and Respiratory Effort, Clear to Auscultation Cardiovascular: NL Sounds; No Murmurs; No JVD, RRR, No Edema Abdominal: NL Sounds; No Tenderness; No Distention Extremities: No Clubbing, Cyanosis Skin: - - minimal erythema of the upper medial groin (about quarter sized), in the center of the erythema there are 2 small openings, nothing is able to be expressed from the area. On the lower R buttock there is still an area of mild erythema-less red, less indurated Neurological: - - pt seems slightly more awake now than yesterday but still sleepy Result Diagrams: 06/19/17 13:45 06/20/17 05:35 Diagnostic Imaging: Patient Name: MINE CERNA Medical Record#: [id number] Ordering Physician: Lisa Kelly MD Acct.#: [id number] : 1975 Age: 42 Sex: M Location: EMERGENCY DEPARTMENT Exam Date: 06/16/172116 ADM Status: PRE ER Order Information: CHEST AP PORTABLE Accession Number: [id number] CPT: 24987 HISTORY: Fever COMPARISONS: July 20, 2016 VIEWS: 1: frontal portable view of the chest at 9:30 PM FINDINGS: LINES AND TUBES: None. CARDIOMEDIASTINAL SILHOUETTE: The cardiomediastinal silhouette is normal for portable technique. PLEURA: The costophrenic angles are sharp. No pleural abnormalities are noted. LUNG PARENCHYMA: The lungs are clear. ABDOMEN: The upper abdomen is clear. There is no subphrenic gas. BONES AND SOFT TISSUES: No bone or soft tissue abnormalities are noted. IMPRESSION: NO ACTIVE CARDIOPULMONARY DISEASE. 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 - Patient Problems (1) Lethargy Current Visit: Yes Status: Acute Code(s): R53.83 - OTHER FATIGUE SNOMED Code(s): 177152799 Comment: The patient has been quite sleepy. He will wake up to interact but is slowed in doing so. This is similar to when he was here in 11/2015 where no cause was identified. His states he continues to have episodes like this at home. Previously his concerta dose was decreased slightly as it was felt to possibly be impacting his presentation but it is now back up. He is very dramatic about his sleepiness but he has not been out of bed except to go to the bathroom. Despite the sleepiness I feel he can go home to continue treating his infection. If his symptoms persist he should see a PCP for further evaluation. While his ammonia level is up mildly I do not think this is the cause of his sleepiness; I will however give lactulose 30ml x1. (2) Infection of skin due to methicillin resistant Staphylococcus aureus (MRSA) Current Visit: Yes Status: Acute Code(s): A49.02 - [facility] Code(s): 757377888 Comment: Change to doxycycline 100mg po BID x14 days. Will continue with hibiclens and mupirocin. Follow up with Dr. Coker in 2-3 weeks. THere is no need for surgical evaluation as the lesions are not significantly elevated and have already drained a scant amount of pus. If the areas become more indurated the patient can see general surgery as an outpatient. (3) ADHD (attention deficit hyperactivity disorder) Current Visit: Yes Status: Acute Comment: Continue concerta. (4) Substance abuse in remission Current Visit: Yes Status: Acute Code(s): F19.10 - OTHER PSYCHOACTIVE SUBSTANCE ABUSE, UNCOMPLICATED SNOMED Code(s): 839624418 Comment: Continue Suboxone at current dose (5) DVT prophylaxis Current Visit: Yes Status: Acute Code(s): HQN3605 - SNOMED Code(s): 328810390 Comment: SQ heparin (6) Full code status Current Visit: Yes Status: Acute Code(s): Z78.9 - OTHER SPECIFIED HEALTH STATUS SNOMED Code(s): 591659963 Status and Disposition: Remain inpatient for IV antibiotics.
[2017-06-20 09:19] VITALS: BP 137/75
--- NOTE | 2017-06-21 02:12 | DS ---
CC: Dr. Coker * DISCHARGE SUMMARY: DATE OF ADMISSION: 06/16/17 DATE OF DISCHARGE: 06/20/17 PRIMARY CARE PROVIDER: To be established. PRINCIPAL DIAGNOSIS: MRSA skin infection involving the right buttock and right medial groin. SECONDARY DIAGNOSES: 1. History of substance abuse, currently in remission. 2. Anxiety. 3. Attention deficit disorder. DISCHARGE MEDICATIONS: 1. Concerta 54 mg p.o. b.i.d. 2. Suboxone 8/2 one tab p.o. b.i.d. 3. Ativan 1 mg p.o. q.6 hours p.r.n. anxiety. 4. Doxycycline 100 mg p.o. b.i.d. 5. Hibiclens 1 wash topically daily x7 days. 6. Mupirocin 1 application to the nostrils twice daily x7 days. HOSPITAL COURSE: Mr. Cerna is a 42-year-old male who presented to the emergency room on 06/16/17 with complaints of skin infection involving the right buttock and right groin. Approximately 1 month prior, he was seen at Urgent Care where he was treated for presumed MRSA skin infection with Bactrim and Keflex. He then developed 2 more lesions and for this, he presented to the emergency room. Culture from the buttock lesion is positive for MRSA. He was started on vancomycin. The induration and erythema surrounding these 2 areas were slowly improving. It was not completely gone. The 2 lesions were spontaneously draining on their own. I do not feel that a surgical evaluation was warranted at this point as there was nothing clearly to drain. The patient was seen in consultation by Dr. Coker, who recommended that he be discharged on doxycycline 100 mg p.o. twice daily for 14 days as well as Hibiclens wash daily x7 days and mupirocin to the nostrils twice daily for 7 days. If the lesions do not recur, then that is great. However, if they recur or do not go away completely, it is recommended that he continue to use the Hibiclens wash and mupirocin for 1 week per month for the next 4 to 6 months. The patient should follow up with Dr. Coker in the next 1 to 2 weeks. The patient over the last 2 days of his hospitalization did have increased sleepiness. The patient's states this is very similar to prior hospitalization where he was worked up for this. No clear etiology was identified. The patient was found to have a mildly elevated ammonia level; however, the cause of this is not clear. I am suspicious that his mental status is being affected by his numerous psychoactive medications. He does need to follow up with a primary care provider; it sounds as if he does not have one now, but he has been instructed to call and contact an office to obtain an appointment. He will have the hospitalist coordinator follow up to ensure that he is able to get an appointment. The patient despite the sleepiness was felt to be stable for discharge home. FOLLOWUP CONCERNS: The patient is being discharged home today, 06/20/17. ACTIVITY LEVEL: As tolerated. DIET: Regular. CONDITION ON DISCHARGE: Stable. TIME SPENT: 35 minutes were spent discharging this patient. [id number]/[facility] #: [id number] VICENTE
[2017-06-21] MEDS ORDERED: Vancomycin Trough Check NOTE FOLLOW UP ONE (06:00)
== END 2017-06-20 12:15 | disposition home or self-care (01) | DRG 383 ==
LOC: ED 20:54 → MED 23:07 → OBSVTOIN 06-18 13:19
PROVIDERS: ADMIT Pediatrics; ATTEND Hospitalist
DX: L02.32 Furuncle of buttock (principal); L02.425 Furuncle of right lower limb; B95.62 Methicillin resistant Staphylococcus aureus infection as the cause of diseases classified elsewhere; F90.9 Attention-deficit hyperactivity disorder, unspecified type; F41.9 Anxiety disorder, unspecified; F11.21 Opioid dependence, in remission; Z79.899 Other long term (current) drug therapy; Z88.1 Allergy status to other antibiotic agents; Z88.0 Allergy status to penicillin
CPT/HCPCS: 36415; 71045; 80048; 80053; 80202; 81003; 82140; 83605; 85025; 85027; 85610; 85730; 86140; 87040; 87070; 87077; 87186; 87205; 87640; 87641; 96365; 96375; 99283; A9270-GY; G0378; J1885; J3370

== ENCOUNTER 2020-07-10 02:36 | Observation (INO) ==
[2020-07-10] MEDS ORDERED: Morphine 10 MG/ML VIAL (1 ml) IV ONE ×2 (02:53→04:55)
[2020-07-10] MEDS ORDERED: NS 0.9% 1000 ml BAG 1,000 ML IV ONE ×2 (02:53→09:06)
[2020-07-10] MEDS ORDERED: Ondansetron 4 mg VIAL 2 MG/ML 2 ml VIAL IV ONE (02:53)
[2020-07-10 03:24] LABS: ABS Basophils 0.1 10^3/ul (0-0.2); ABS Eosinophils 0.2 10^3/ul (0-0.6); ABS Lymphocytes 2.3 10^3/ul (1.0-4.8); ABS Monocytes 1.2 10^3/ul (0-0.8); ABS Neutrophils 10.4 10^3/ul (1.5-7.7); Eosinophil % 1.2 %; Hematocrit 42 % (42-52); Hemoglobin 14.1 g/dL (14.0-18.0); Lymphocyte % 16.6 %; Mean Corpuscular HGB Conc 34 g/dL (31-36); Mean Corpuscular Hemoglobin 28 pg (27-31); Mean Corpuscular Volume 84 fL (80-94); Mean Platelet Volume 8.3 fL (7.4-10.4); Nucleated Red Blood Cells % 0.1; Platelet Count 350 10^3/uL (150-450); Red Blood Count 4.99 10^6 /uL (4.18-5.48); Red Cell Distribution Width 13 % (10-15); White Blood Count 14.1 10^3/uL (3.5-10.8)
[2020-07-10 03:57] LABS: Albumin 4.6 g/dL (3.2-5.2); Albumin/Globulin Ratio 1.4 (1-3); C Reactive Protein 117.37 mg/L (<8.01); Calcium 9.4 mg/dL (8.6-10.3); EGFR African American 135.4 (>60); EGFR Non-African American 111.9 (>60); Globulin 3.4 g/dL (2-4); Potassium 3.9 mmol/L (3.5-5.0); Total Bilirubin 0.9 mg/dL (0.2-1.0)
[2020-07-10 05:16] LABS: Urine Appearance Clear; Urine Bilirubin Negative (Negative); Urine Blood Negative (Negative); Urine Color Amber; Urine Glucose Negative (Negative); Urine Ketones Negative (Negative); Urine Nitrite Negative (Negative); Urine Protein 1+(30 mg/dL) (Negative); Urine Specific Gravity 1.033 (1.002-1.030); Urine Urobilinogen Negative (Negative)
[2020-07-10 05:19] LABS: Urine Bacteria 1+ (Absent); Urine Red Blood Cell Absent (Absent); Urine Squamous Epithelial Cell Present (Absent); Urine White Blood Cell Trace(0-5/hpf) (Absent)
[2020-07-10] MEDS ORDERED: Morphine 10 MG/ML VIAL (1 ml) IV PRN (05:19)
[2020-07-10] MEDS ORDERED: Iohexol 300 (CONTRAST) 10 ML SDV IV ONE (07:29)
[2020-07-10] MEDS ORDERED: Lorazepam PYXIS KEY PRN (10:58)
[2020-07-10] MEDS ORDERED: LORazepam 2 mg VIAL 1 ml IV PUSH ONE (10:58)
[2020-07-10] MEDS ORDERED: Ondansetron 4 mg VIAL 2 MG/ML 2 ml VIAL IV PRN (11:03)
[2020-07-10] MEDS ORDERED: cefTRIAXone 1 gm/50 mL NS BAG 1 GM/50 ML BAG IV ONE (11:07)
[2020-07-10] MEDS: NS 0.9% 1000 ml BAG 1,000 ML IV SCH ×2 (12:35→23:09)
[2020-07-10] MEDS: Azithromycin 500 mg/250 ml NS 500 MG/250 ML BAG IVPB SCH (13:38)
[2020-07-11 06:36] LABS: ABS Basophils 0.1 10^3/ul (0-0.2); ABS Eosinophils 0.1 10^3/ul (0-0.6); ABS Lymphocytes 2.2 10^3/ul (1.0-4.8); ABS Monocytes 0.9 10^3/ul (0-0.8); ABS Neutrophils 6.3 10^3/ul (1.5-7.7); Eosinophil % 1.5 %; Hematocrit 37 % (42-52); Hemoglobin 12.4 g/dL (14.0-18.0); Lymphocyte % 22.6 %; Mean Corpuscular HGB Conc 34 g/dL (31-36); Mean Corpuscular Hemoglobin 29 pg (27-31); Mean Corpuscular Volume 85 fL (80-94); Mean Platelet Volume 8.1 fL (7.4-10.4); Platelet Count 285 10^3/uL (150-450); Red Blood Count 4.32 10^6 /uL (4.18-5.48); Red Cell Distribution Width 13 % (10-15); White Blood Count 9.5 10^3/uL (3.5-10.8)
[2020-07-11 06:52] LABS: Calcium 8.7 mg/dL (8.6-10.3); EGFR African American 156.7 (>60); EGFR Non-African American 129.5 (>60)
[2020-07-11] MEDS ORDERED: cefTRIAXone 1 gm/50 mL NS BAG 1 GM/50 ML BAG IVPB SCH (12:00)
[2020-07-11] MEDS: Polyethylene Glycol 3350 17 GM PACKET PO SCH ×2 (12:36→20:03)
[2020-07-11] MEDS: Azithromycin 500 mg/250 ml NS 500 MG/250 ML BAG IVPB SCH (12:36)
[2020-07-11] MEDS ORDERED: Magnesium CITRATE LIQ 300 ML BTL PO ONE (15:00)
[2020-07-11] MEDS ORDERED: Enoxaparin 40 MG/0.4 ML SYR SUBCUT SCH (16:00)
[2020-07-11] MEDS: NS 0.9% 1000 ml BAG 1,000 ML IV SCH (17:25)
[2020-07-12] MEDS: NS 0.9% 1000 ml BAG 1,000 ML IV SCH (05:53)
[2020-07-12 06:03] LABS: ABS Eosinophils 0.2 10^3/ul (0-0.6); ABS Lymphocytes 2.7 10^3/ul (1.0-4.8); ABS Monocytes 0.8 10^3/ul (0-0.8); ABS Neutrophils 3.4 10^3/ul (1.5-7.7); Eosinophil % 2.8 %; Hematocrit 36 % (42-52); Hemoglobin 12.4 g/dL (14.0-18.0); Lymphocyte % 37.7 %; Mean Corpuscular HGB Conc 34 g/dL (31-36); Mean Corpuscular Hemoglobin 29 pg (27-31); Mean Corpuscular Volume 84 fL (80-94); Mean Platelet Volume 8.1 fL (7.4-10.4); Platelet Count 270 10^3/uL (150-450); Red Blood Count 4.32 10^6 /uL (4.18-5.48); Red Cell Distribution Width 13 % (10-15); White Blood Count 7.1 10^3/uL (3.5-10.8)
[2020-07-12 06:22] LABS: C Reactive Protein 101.34 mg/L (<8.01); Calcium 8.2 mg/dL (8.6-10.3); EGFR African American 171.3 (>60); EGFR Non-African American 141.6 (>60)
[2020-07-12] MEDS: Polyethylene Glycol 3350 17 GM PACKET PO SCH (07:38)
[2020-07-12 14:35] VITALS: BP 136/56
== END 2020-07-12 15:30 | disposition home or self-care (01) ==
LOC: ED 02:36 → MED 02:36
PROVIDERS: ADMIT Internal Medicine; ATTEND Hospitalist

== ENCOUNTER 2023-10-04 20:08 | Observation (INO) ==
[2023-10-04 21:02] LABS: ABS Basophils 0.1 10^3/uL (0.0-0.1); ABS Eosinophils 0.3 10^3/uL (0.0-0.5); ABS Lymphocytes 3.3 10^3/uL (1.0-4.8); ABS Monocytes 1.1 10^3/uL (0.0-1.1); ABS Nucleated RBC 0.08 10^3/ul; Hematocrit 54.6 % (38-53); Hemoglobin 18.4 g/dL (13.2-16.3); Lymphocyte % 23.7 %; Mean Corpuscular Hemoglobin 27.9 pg (27-33); Mean Corpuscular Hgb Conc 33.6 g/dL (31-36); Mean Platelet Volume 8.1 fL (7.5-11.2); Nucleated Red Blood Cells % 0.6 %/100WBC (0.0-0.8); Platelet Count 399 10^3/uL (150-450); Red Blood Count 6.58 10^6/uL (4.06-5.63); White Blood Count 13.8 10^3/uL (3.6-10.2)
[2023-10-04 21:37] LABS: Albumin 4.4 g/dL (3.2-5.2); Albumin/Globulin Ratio 1.3 (1-3); Creatinine, Serum 0.93 mg/dL (0.67-1.17); Globulin 3.3 g/dL (2-4); Potassium 3.8 mmol/L (3.5-5.0); Total Bilirubin 0.7 mg/dL (0.2-1.0); Total Protein 7.7 g/dL (6.4-8.9); eGFR CKD-EPI 102.6 (>60)
[2023-10-04 23:23] LABS: High Sensitivity Troponin 1 Hr 42 pg/mL (<20)
[2023-10-05] MEDS: Iohexol 350 (CONTRAST) 500 ML MDV IV ONE (01:18)
[2023-10-05 02:49] LABS: ABS Basophils 0.1 10^3/uL (0.0-0.1); ABS Eosinophils 0.3 10^3/uL (0.0-0.5); ABS Monocytes 1.1 10^3/uL (0.0-1.1); ABS Neutrophils 8.3 10^3/uL (1.5-7.6); ABS Nucleated RBC 0.02 10^3/ul; Eosinophil % 2.5 %; Hematocrit 49.4 % (38-53); Hemoglobin 16.6 g/dL (13.2-16.3); Lymphocyte % 28.9 %; Mean Corpuscular Hemoglobin 27.7 pg (27-33); Mean Corpuscular Hgb Conc 33.7 g/dL (31-36); Mean Corpuscular Volume 82.2 fL (80-97); Mean Platelet Volume 7.9 fL (7.5-11.2); Nucleated Red Blood Cells % 0.2 %/100WBC (0.0-0.8); Platelet Count 377 10^3/uL (150-450); Red Blood Count 6.01 10^6/uL (4.06-5.63); Red Cell Distribution Width 13.7 % (12-17); White Blood Count 13.8 10^3/uL (3.6-10.2)
[2023-10-05 03:09] LABS: Creatinine, Serum 0.79 mg/dL (0.67-1.17)
[2023-10-05] MEDS: Heparin 5000 UNITS/ML 1 mL VIAL IV SCH (03:28)
[2023-10-05] MEDS: Heparin DRIP 25,000 UNITS BAG 25,000 UNITS/250 ML BAG IV SCH (03:29)
[2023-10-05 05:11] LABS: Urine Benzodiazepine Screen None Detected (None Detect); Urine Cannabinoids Screen Presumptive Positive (None Detect); Urine Opiates Screen None Detected (None Detect)
[2023-10-05 08:06] LABS: C Reactive Protein 1.37 mg/L (<8.01)
[2023-10-05 09:55] LABS: Erythrocyte Sed Rate 1 mm/Hr (0-14)
[2023-10-05] MEDS: Sulfur Hexaflouride MICROSPHR 25 MG VIAL IV ONE (09:58)
[2023-10-05] MEDS ORDERED: Sulfur Hexaflouride MICROSPHR 25 MG VIAL IV ONE (11:00)
[2023-10-05] MEDS: Buprenorp/Nalox 8-2 MG SL TAB SL SCH (16:01)
[2023-10-06 17:45] VITALS: BP 177/95
[2023-10-06 19:29] LABS: Anion Gap 7 mmol/L (2-16); Blood Urea Nitrogen 12 mg/dL (6-24); CO2 Carbon Dioxide 29 mmol/L (22-32); Calcium 9.6 mg/dL (8.6-10.3); Chloride 98 mmol/L (101-111); Cholesterol 148 mg/dL; Creatinine, Serum 0.88 mg/dL (0.67-1.17); Glucose 130 mg/dL (70-100); HDL Cholesterol 44.7 mg/dL; LDL Cholesterol 78 mg/dL; Sodium 134 mmol/L (135-145); Triglycerides 127 mg/dL; eGFR CKD-EPI 107.4 (>60)
== END 2023-10-06 20:55 | disposition home or self-care (01) ==
LOC: ED 20:08 → EDHOLD 20:08 → SUATTDRO 23:59 → MEDTELE 10-05 05:25
PROVIDERS: ADMIT Internal Medicine; ATTEND Student in an Organized Health Care Education/Training Program